=== PATIENT | male | born 1950 | race African-American/Black ===

== ENCOUNTER 2017-09-09 11:25 | Emergency (ER) | payer MEDICARE, MEDICAID ==
[~2017-09-09] VITALS: Ht 170.2 cm; Wt 84.0 kg
[~2017-09-09 11:25] MED LIST: CIPRO500 MG OR; [UNRECOGNIZED DRUG - OTHER] OR
[2017-09-09 13:33] VITALS: BP 162/75
== END 2017-09-09 13:56 ==
LOC: ED 11:25
DX: T82.9XXA Unspecified complication of cardiac and vascular prosthetic device, implant and graft, initial encounter (principal); I12.0 Hypertensive chronic kidney disease with stage 5 chronic kidney disease or end stage renal disease; N18.6 End stage renal disease; Z99.2 Dependence on renal dialysis

== ENCOUNTER 2019-09-08 | Emergency (ER) | payer MEDICARE, MEDICAID ==
[2019-09-08] MEDS ORDERED: RENVELA800 MG PO (11:42)
[2019-09-08] MEDS ORDERED: LOSARTAN POTASS25 MG PO (11:42)
== END 2019-09-08 13:32 | disposition home or self-care (01) ==
DX: R07.81 Pleurodynia (principal); W01.0XXA Fall on same level from slipping, tripping and stumbling without subsequent striking against object, initial encounter; Y92.512 Supermarket, store or market as the place of occurrence of the external cause

== ENCOUNTER 2023-08-27 11:05 | Emergency (ER) | payer MEDICARE, MEDICAID ==
[2023-08-27] VITALS (23 sets, daily range): BP systolic 132–156; BP diastolic 54–68
[~2023-08-27] VITALS: Ht 170.2 cm; Wt 63.0 kg
[~2023-08-27 11:05] MED LIST changes: +LOSARTAN POTASS25 MG PO; +RENVELA800 MG PO
[2023-08-27 12:51] LABS: BASO% 0.5 % (0-3); EOS% 3.9 % (0-8); HEMATOCRIT 21.6 % (39.0-50.0); IMMATURE GRANULOCYTES 0.2 % (0.0-5.0); LYMPH% 15.8 % (15-41); MEAN CELL VOLUME 97.7 fL CALC (80.0-100.0); MEAN CORPUSCULAR HGB 30.8 pG CALC (26.0-32.0); MEAN CORPUSCULAR HGB CONC 31.5 g/dL CAL (32.0-36.0); MONO% 10.8 % (2-13); NEUT# 3.88 thou/uL (1.82-7.42); NEUT% 68.8 % (42-76); RED BLOOD COUNT 2.21 mill/uL (4.70-6.10); RED CELL DISTRI WIDTH 14.2 % (11.5-15.5)
[2023-08-27 12:55] LABS: HEMOGLOBIN 6.8 g/dl (14.0-18.0)
[2023-08-27 13:10] LABS: ALBUMIN 3.6 g/dL (3.2-5.0); BILIRUBIN, TOTAL 0.7 mg/dL (0.2-1.3); POTASSIUM 4.7 mmol/l (3.5-5.1); TOTAL PROTEIN 7.4 g/dL (6.3-8.2)
[2023-08-27 13:18] LABS: CREATININE 5.5 mg/dL (0.7-1.3)
== END 2023-08-27 17:28 | disposition home or self-care (01) ==
LOC: ED 11:05
PROVIDERS: Emergency Medicine
PROC: 30233N1 Transfusion of Nonautologous Red Blood Cells into Peripheral Vein, Percutaneous Approach (ICD-10-PCS; principal; 2023-08-27)
DX: N18.6 End stage renal disease (principal); Z99.2 Dependence on renal dialysis; D63.1 Anemia in chronic kidney disease
CPT/HCPCS: P9016

== ENCOUNTER 2024-07-15 13:59 | Emergency (ER) | payer MEDICARE, MEDICAID ==
[~2024-07-15] VITALS: Ht 170.2 cm; Wt 68.0 kg
[2024-07-15 15:28] VITALS: BP 127/59
[2024-07-15 15:30] VITALS: BP 123/53
[2024-07-15] MEDS ORDERED: TRAMADOL HYDROC50 M1 PO (16:03)
[2024-07-15 16:22] VITALS: BP 123/53
== END 2024-07-15 16:25 | disposition home or self-care (01) ==
LOC: ED 13:59
PROC: 2W3EX1Z Immobilization of Right Hand using Splint (ICD-10-PCS; principal; 2024-07-15)
DX: S62.390A Other fracture of second metacarpal bone, right hand, initial encounter for closed fracture (principal); M25.512 Pain in left shoulder; N18.6 End stage renal disease; V00.831A Fall from motorized mobility scooter, initial encounter; Z99.2 Dependence on renal dialysis